=== PATIENT | male | born 1965 | race Caucasian/White ===

== ENCOUNTER 2017-08-12 16:42 | Emergency (ER) | payer OTHER ==
[~2017-08-12] VITALS: Ht 190.5 cm; Wt 124.3 kg
[2017-08-12 17:01] VITALS: TEMP 36.6; Ht 190.5 cm; Wt 124.3 kg
[2017-08-12] MEDS ORDERED: SULF800T23 PO ×2 (17:42→17:54)
[2017-08-12] MEDS ORDERED: PRED50TA PO ×2 (17:42→17:54)
--- NOTE | 2017-08-12 17:43 | EMERGENCY ROOM VISIT NOTE ---
History First contact with patient: 17:29 Chief Complaint: RASH Stated Complaint: RASH ON RIGHT INNER THIGH AND LEFT BUTTOCK History of Present Illness The patient is a 52 year old male who presents to the Emergency Room with complaints of A rash that started on his leg a few days ago. It is occasionally itchy. He denies any significant pain. The rash seems to be spreading to his left buttock. He denies any new soaps, lotions or detergents. He has not been outside recently. He denies any fever or chills. Review of Systems 6 system review negative. Please see pertinent positives in the history of present illness section. Past Medical/Surgical History Hypertension Social History Smoking Status: Never Smoker Current/Historical Medications Scheduled Prednisone (Prednisone), 50 MG PO DAILY Sulfa/Trimethoprim (Bactrim Ds 800MG/160MG), 1 TAB PO BID Physical Exam Vital Signs Date Time Temp Pulse Resp B/P (MAP) Pulse Ox O2 Delivery O2 Flow Rate FiO2 08/12/17 17:55 79 18 153/112 93 Room Air 08/12/17 17:01 36.6 88 18 161/108 94 Room Air Physical Exam VITALS: Vitals are noted on the nurse's note and reviewed by myself. Vital signs stable. GENERAL: 52-year-old male, in no acute distress, nondiaphoretic, well-developed well-nourished. SKIN: Approximately 10 cm area of erythema and warmth noted to the medial aspect of the right side. There is centralized honey crusting. A similar lesion approximately 5 cm on the left buttock area. Again, centralized honey crusting is present.. HEAD: Normocephalic atraumatic. MUSCULOSKELETAL: Strength 5/5 throughout. NEURO: Patient was alert and oriented to person place and time. Normal sensation to touch. No focal neurological deficits. Medical Decision & Procedures Medications Administered Medications (Trade) Dose Ordered Sig/Asha Route Start Time Stop Time Status Last Admin Dose Admin Trimethoprim/ Sulfamethoxazole (Septra Ds 800/ 160MG Tab) 1 tab NOW ONCE PO 08/12/17 17:45 08/12/17 17:46 DC 08/12/17 17:53 1 TAB Prednisone (PredniSONE TAB) 60 mg NOW STAT PO 08/12/17 17:38 08/12/17 17:39 DC 08/12/17 17:53 60 MG ED Course The patient was seen and examined He was given 1 dose of prednisone. He was also given a dose of Bactrim. The areas were marked Discharge instructions were reviewed, and he was discharged in good condition Medical Decision Differential diagnosis: Contact dermatitis, bacterial infection such as cellulitis, fungal infection, allergic reaction This patient is a 52-year-old male that presents to the emergency department with a rash that started on his right leg and then spread into his left buttock. On exam, he did have a significant area of erythema with some centralized honey crusting. This was not consistent with shingles. the rash almost appeared similar to that of poison florentino. He did complain of mild itching. The patient had some significant redness surrounding the honey crusted lesions, which is why also cover the patient with antibiotics in addition to steroids. The patient seemed comfortable with this plan. He was encouraged to follow-up with his primary care physician on Tuesday to have this rechecked. The areas were outlined. He also agrees to return with any new or worsening symptoms. This chart was completed in part utilizing [employer] Speech Voice Recognition software. Attempts were made to minimize the grammatical errors, random word insertions, pronoun errors and incomplete sentences. Any formal questions or concerns about the content, text or information contained within the body of this dictation should be directly addressed to the provider for clarification. Medication Reconcilliation Current Medication List: was personally reviewed by me Blood Pressure Screening Patient's blood pressure: Elevated blood pressure Blood pressure disposition: Referred to PCP Impression Primary Impression: Rash Departure Information Dispostion Home / Self-Care Condition GOOD Referrals Damion Camejo M.D. (PCP) Patient Instructions [facility] Additional Instructions Please take the entire course of antibiotics Please take the entire course of steroids Please wash the area twice daily with soap and water. Please follow-up with your primary care physician to have this rechecked in the next 2 days. Do not hesitate to return to the emergency department with any new, worsening or concerning symptoms
[2017-08-12] MEDS ORDERED: SULFAMETHOXAZOLE/TRIMETHOPRIM DS 800/160MG TAB PO ONE (17:45)
[2017-08-12 17:55] VITALS: BP 153/112; PULSE 79; O2SAT 93
== END 2017-08-12 17:55 | disposition home or self-care (01) ==
LOC: C.EDB 16:43 → C.EDD 17:55
DX: R21 Rash and other nonspecific skin eruption (principal); I10 Essential (primary) hypertension